=== PATIENT | female | born 2000 | race Caucasian/White ===

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

== ENCOUNTER → 2020-07-06 | Emergency (ER) | payer MEDICAID, OTHER ==
[~2020-07-06] VITALS: Ht 162.6 cm; Wt 90.7 kg
[~2020-07-06] MED LIST: HYDROCODONE/APAP 10/325MG TABLET ONE
[2020-07-06] MEDS: HYDROCODONE/APAP 10/325MG TABLET PO ONE (15:08)
[2020-07-06 15:21] LABS: APPEARANCE,URINE SL CLOUDY (CLEAR); BILIRUBIN,URINE NEGATIVE (NEGATIVE); BLOOD, URINE TRACE-INTA Ery/uL (NEGATIVE); COLOR,URINE YELLOW (YELLOW); KETONES,URINE NEGATIVE (NEGATIVE); LEUKOCYTE ESTERASE ,URINE LARGE (NEGATIVE); NITRITE, URINE NEGATIVE (NEGATIVE); PROTEIN,URINE NEGATIVE (NEGATIVE); UGLUCOSE NEGATIVE (NEGATIVE); UROBILINOGEN,URINE 0.2 EU/dL (0.2)
[2020-07-06 15:47] LABS: BACTERIA,URINE 3+ /HPF (None Seen); WBC,URINE 51-80 /HPF (0-3)
[2020-07-06 16:03] VITALS: BP 128/56
--- NOTE | 2020-07-06 16:04 | NUR ---
dc pt to home , explained discharge instructions and prescription , pt verbalized understanding ,aox4 , no acute events noted , ambulatory , discusssed if symptomps persist call 911 or go to the nearest emergency room .
== END | disposition home or self-care (01) ==
LOC: ER 14:36
DX: N12 Tubulo-interstitial nephritis, not specified as acute or chronic (principal)
CPT/HCPCS: 81000-TC; 84703-TC; 87086-TC

== ENCOUNTER 2020-07-08 16:39 | Emergency (ER) | payer MEDICAID ==
[~2020-07-08] VITALS: Ht 162.6 cm; Wt 90.7 kg
--- NOTE | 2020-07-08 16:54 | NUR ---
came in for lower back pain radiating to abd 9/10 pain scale, noted blood in the urine and on norco but giving her abd pain per patient, to ER bed 10, hooked to monitor, change dto hosp gown, warm blanket provided, awaiting MD dooley
--- NOTE | 2020-07-08 16:55 | NUR ---
ALVARO NUÑEZ AT BEDSIDE
[2020-07-08] MEDS ORDERED: TRAMADOL HCL 50 MG TABLET ONE (17:06)
[2020-07-08] MEDS ORDERED: TRAMADOL HCL 50 MG TABLET PO ONE (17:30)
[2020-07-08] MEDS ORDERED: MORPHINE SULFATE INJ 4 MG/ML DISP.SYRIN ONE (17:40)
[2020-07-08] MEDS ORDERED: ONDANSETRON 4 MG TAB.RAPDIS ONE (17:40)
[2020-07-08] MEDS ORDERED: MORPHINE SULFATE INJ 2 MG/ML DISP.SYRIN IM ONE (18:00)
[2020-07-08] MEDS ORDERED: ONDANSETRON 4 MG TAB.RAPDIS PO ONE (18:00)
[2020-07-08 18:07] VITALS: BP 124/81
--- NOTE | 2020-07-08 18:31 | NUR ---
Patient discharged to home in stable condition. Written and verbal after care instructions given. Patient verbalizes understanding of instruction.
== END 2020-07-08 18:32 | disposition home or self-care (01) ==
LOC: ER 16:41
DX: R10.32 Left lower quadrant pain (principal); R10.12 Left upper quadrant pain; R30.0 Dysuria; R31.9 Hematuria, unspecified
CPT/HCPCS: 96372; 99283; J2270; Q0162

== ENCOUNTER 2020-07-23 13:00 | Emergency (ER) | payer MEDICAID ==
[~2020-07-23] VITALS: Ht 162.6 cm; Wt 90.7 kg
--- NOTE | 2020-07-23 13:20 | NUR ---
pt bib self c/o left flank pain x 3 weeks 10/10 pain scale. denies n/v. vs checked. seen by
[2020-07-23] MEDS ORDERED: IV NS 0.9% 1,000 ML BAG IV ONE (14:00)
[2020-07-23] MEDS ORDERED: KETOROLAC TROMETHAMINE INJ 30 MG/ML VIAL IV ONE (14:00)
--- NOTE | 2020-07-23 14:00 | NUR ---
urine collected sent to lab
[2020-07-23] MEDS ORDERED: KETOROLAC TROMETHAMINE INJ 30 MG/ML VIAL ONE (14:10)
[2020-07-23 14:22] LABS: BASOPHILS % (AUTO) 0.4 % (0.0-2.0); EOSINOPHILS % (AUTO) 1.8 % (0.0-6.0); HEMATOCRIT 42 % (33-45); HEMOGLOBIN 13.8 g/dL (11.5-14.8); LYMPHOCYTES # (AUTO) 2.7 /CMM (0.8-4.8); LYMPHOCYTES % (AUTO) 36.7 % (20.0-44.0); MEAN CORPUSCULAR HGB CONC 33 g/dl (31.0-36.0); MEAN CORPUSCULAR VOLUME 86 fL (82-100); MONOCYTES # (AUTO) 0.5 /CMM (0.1-1.30); MONOCYTES % (AUTO) 6.8 % (2.0-12.0); NEUTROPHILS # (AUTO) 3.9 /CMM (1.8-8.9); NEUTROPHILS % (AUTO) 54.3 % (43.0-81.0); PLATELET COUNT (AUTO) 328 /CMM (150-450); RED BLOOD CELL COUNT(AUTO) 4.85 MIL/uL (4.0-5.2); WHITE BLOOD COUNT (AUTO) 7.2 K/uL (4.3-11.0)
--- NOTE | 2020-07-23 15:03 | NUR ---
covid swab done sent to lab
--- NOTE | 2020-07-23 15:20 | NUR ---
called lab for hcg result. unable to administer tramadol
--- NOTE | 2020-07-23 15:25 | NUR ---
per lab, to give them 30min for results
[2020-07-23] MEDS ORDERED: MORPHINE SULFATE INJ 2 MG/ML DISP.SYRIN ONE (15:26)
[2020-07-23] MEDS ORDERED: ONDANSETRON HCL/PF 4 MG/2 ML VIAL ONE (15:26)
--- NOTE | 2020-07-23 15:29 | NUR ---
notified dr. negron that hcg result will take 30 min to come back per lab. dr. negron ordered to give morphine 2mg and zofran.
[2020-07-23 15:30] LABS: BILIRUBIN,URINE NEGATIVE (NEGATIVE); BLOOD, URINE MODERATE Ery/uL (NEGATIVE); COLOR,URINE YELLOW (YELLOW); LEUKOCYTE ESTERASE ,URINE NEGATIVE (NEGATIVE); NITRITE, URINE NEGATIVE (NEGATIVE); PROTEIN,URINE NEGATIVE (NEGATIVE); UGLUCOSE NEGATIVE (NEGATIVE); UROBILINOGEN,URINE 0.2 EU/dL (0.2)
[2020-07-23] MEDS ORDERED: MORPHINE SULFATE INJ 2 MG/ML DISP.SYRIN IV ONE (15:30)
[2020-07-23] MEDS ORDERED: ONDANSETRON HCL/PF - ER 4 MG/2 ML VIAL IV ONE (15:30)
--- NOTE | 2020-07-23 15:34 | NUR ---
hcg negative per dr. jamil tipton to still give toradol
[2020-07-23 15:46] LABS: CALCIUM, SERUM 9.3 mg/dL (8.5-10.1); CREATININE 0.9 mg/dL (0.6-1.3); POTASSIUM 3.3 mmol/L (3.5-5.1)
[2020-07-23 15:48] LABS: BACTERIA,URINE Few /HPF (None Seen); WBC,URINE 0-2 /HPF (0-3)
[2020-07-23 15:49] LABS: SQUAMOUS EPITHELIAL CELL,UR Few /HPF (None Seen)
[2020-07-23 15:51] LABS: ALBUMIN 4.4 g/dL (3.4-5.0); BILIRUBIN,DIRECT 0.1 mg/dL (0.0-0.2); BILIRUBIN,TOTAL 0.8 mg/dL (0.2-1.0); TOTAL PROTEIN, SERUM 8.1 g/dL (6.4-8.2)
[2020-07-23] MEDS ORDERED: POTASSIUM CHLORIDE 20 MEQ TAB.PRT.SR PO ONE ×2 (16:23→16:30)
[2020-07-23 17:10] VITALS: BP 126/81
--- NOTE | 2020-07-23 17:10 | NUR ---
Patient discharged to home in stable condition. Written and verbal after care instructions given. Patient verbalizes understanding of instruction. IV removed. Catheter intact and site benign. Pressure and 4x4 applied to site. No bleeding noted.
== END 2020-07-23 17:11 | disposition home or self-care (01) ==
LOC: ER 13:41
DX: R10.9 Unspecified abdominal pain (principal); E87.6 Hypokalemia; Z87.440 Personal history of urinary (tract) infections; E86.0 Dehydration; R11.0 Nausea
CPT/HCPCS: 36415; 71045; 74176; 80048; 80076; 81001; 83690; 84703; 85025; 96361; 96374; 96375; 99285; C9803; J1885; J2270; J2405 ×2; J7030; U0003

== ENCOUNTER 2020-07-29 17:44 | Emergency (ER) | payer MEDICAID ==
[~2020-07-29] VITALS: Ht 162.6 cm; Wt 81.6 kg
[2020-07-29] MEDS ORDERED: IV NS 0.9% 500 ML BAG IV ONE (18:30)
[2020-07-29] MEDS ORDERED: HYDROCODONE/APAP 5/325MG TABLET PO ONE (18:30)
--- NOTE | 2020-07-29 18:30 | NUR ---
JOHANNY FROM HOME TO ER BED 7. AAOX4. NOT IN RESP DISTRESS, BREATHING EVEN AND UNLABORED. SATTING 99%. AMBULATORY. CAME IN FOR COOUGH, NASAL CONGESTION. UPPER CHEST PAIN, BODY ACHE AND FEVER. PT REPORTED THAT SHE HAD A FEVER OF 102 IN THE MORNING. PT ALSO REPORTS THAT SHE IS ON ATB TX FOR A SINUS INFECTION WHICH WAS STARTED THURSDAY. PT DID GET TESTED FOR COVID BACK ON WITH A NEGATIVE RESULT. PROVIDER WAS AT THE BEDSIDE FOR EVAL. ORDERS RECEIVED NOTED AND CARRIED OUT. IV LINE ESTABLISHED ON L AC 18G. BLOOD DRAWN AND GIVEN TO [facility]URN OPERATOR MARGARINE AT BEDSIDE. EMT AT BEDSIDE DOING EKG. PT ON MONITOR
[2020-07-29 18:31] LABS: BASOPHILS % (AUTO) 0.4 % (0.0-2.0); EOSINOPHILS % (AUTO) 1.6 % (0.0-6.0); HEMATOCRIT 41 % (33-45); HEMOGLOBIN 13.5 g/dL (11.5-14.8); LYMPHOCYTES # (AUTO) 3.1 /CMM (0.8-4.8); LYMPHOCYTES % (AUTO) 41.7 % (20.0-44.0); MEAN CORPUSCULAR HGB CONC 33 g/dl (31.0-36.0); MEAN CORPUSCULAR VOLUME 87 fL (82-100); MONOCYTES # (AUTO) 0.5 /CMM (0.1-1.30); MONOCYTES % (AUTO) 6.1 % (2.0-12.0); NEUTROPHILS # (AUTO) 3.8 /CMM (1.8-8.9); NEUTROPHILS % (AUTO) 50.2 % (43.0-81.0); PLATELET COUNT (AUTO) 360 /CMM (150-450); RED BLOOD CELL COUNT(AUTO) 4.69 MIL/uL (4.0-5.2); WHITE BLOOD COUNT (AUTO) 7.5 K/uL (4.3-11.0)
[2020-07-29] MEDS ORDERED: HYDROCODONE/APAP 5/325MG TABLET ONE (18:37)
[2020-07-29 18:38] LABS: CALCIUM, SERUM 8.8 mg/dL (8.5-10.1); CREATININE 0.8 mg/dL (0.6-1.3); POTASSIUM 3.3 mmol/L (3.5-5.1)
[2020-07-29 18:44] LABS: ALBUMIN 4.1 g/dL (3.4-5.0); BILIRUBIN,DIRECT 0.1 mg/dL (0.0-0.2); BILIRUBIN,TOTAL 0.3 mg/dL (0.2-1.0)
--- NOTE | 2020-07-29 18:49 | NUR ---
PT SIGNED WAIVER. XRAY AT BEDSIDE
[2020-07-29] MEDS ORDERED: KETOROLAC TROMETHAMINE 15 MG/ML VIAL ONE (19:55)
[2020-07-29] MEDS ORDERED: POTASSIUM CHLORIDE 20 MEQ TAB.PRT.SR PO ONE ×2 (19:59→20:00)
[2020-07-29] MEDS ORDERED: KETOROLAC TROMETHAMINE INJ 30 MG/ML VIAL IV ONE (20:00)
--- NOTE | 2020-07-29 20:15 | NUR ---
Patient discharged to home in stable condition. Written and verbal after care instructions given. Patient verbalizes understanding of instruction.IV removed. Catheter intact and site benign. Pressure and 4x4 applied to site. No bleeding noted. Pt ambulatory with a steady gait
[2020-07-29 20:29] VITALS: BP 135/77
== END 2020-07-29 20:17 | disposition home or self-care (01) ==
LOC: ER 17:50
DX: J01.80 Other acute sinusitis (principal); J06.9 Acute upper respiratory infection, unspecified; R50.9 Fever, unspecified; M79.18 Myalgia, other site; E87.6 Hypokalemia; R00.0 Tachycardia, unspecified
CPT/HCPCS: 71045; 80048; 80076; 84484; 85025; 85378; 85730; 93005; 96374; 99285; J1885; J7040; 36415

== ENCOUNTER 2022-12-02 18:30 | Emergency (ER) | payer OTHER ==
[~2022-12-02] VITALS: Ht 162.6 cm; Wt 77.1 kg
[2022-12-02 18:53] VITALS: BP 133/90
[2022-12-02] MEDS ORDERED: HYDROCODONE/APAP 5/325MG TABLET PO ONE (19:30)
[2022-12-02] MEDS ORDERED: HYDROCODONE/APAP 5/325MG TABLET ONE (19:33)
[2022-12-02] MEDS ORDERED: IBUP-1953 PO (19:38)
[2022-12-02] MEDS ORDERED: CIPR10DR LEFT EAR (19:38)
--- NOTE | 2022-12-02 19:41 | NUR ---
Patient discharged to home in stable condition. Written and verbal after care instructions given. Patient verbalizes understanding of instruction.
== END 2022-12-02 19:42 | disposition home or self-care (01) ==
LOC: ER 18:34
DX: H92.02 Otalgia, left ear (principal)